=== PATIENT | female | born 1985 | race Caucasian/White ===

== ENCOUNTER 2020-08-24 07:32 | Outpatient (CLI) | payer OTHER ==
[2020-08-24 14:45] LABS: ALBUMIN 4.3 g/dL (3.2-5.5); ALBUMIN/GLOBULIN RATIO 1.4 (1.0-2.2); ALKALINE PHOSPHATASE 48 IU/L (42-121); ALT ALANINE AMINOTRANSFERASE 17 IU/L (10-60); AST ASPARTATE AMINOTRANSFERASE 21 IU/L (10-42); BILIRUBIN,TOTAL 0.9 mg/dL (0.2-1.0); BUN - BLOOD UREA NITROGEN 10 mg/dL (6-20); CARBON DIOXIDE - CO2 28 mmol/L (21-32); CHLORIDE 105 mmol/L (101-111); CHOL/HDL RATIO 2.5 (<4.4); CHOLESTEROL 135 mg/dL; CREATININE 0.7 mg/dL (0.4-1.0); GFR - MDRD 97 (>89); GLUCOSE 100 mg/dL (70-100); HDL CHOLESTEROL 53 mg/dL; LDL CHOLESTEROL,CALCULATED 71 mg/dL; LDL/HDL RATIO 1.3 (<4.4); POTASSIUM 3.9 mmol/L (3.5-5.0); SODIUM 142 mmol/L (135-145); TOTAL PROTEIN 7.4 g/dL (6.7-8.2); TRIGLYCERIDES 54 mg/dL; VLDL CHOLESTEROL 11 mg/dL
[2020-08-24 14:47] LABS: BASOPHILS # (AUTO) 0.1 10^3/uL (0.0-0.1); BASOPHILS % (AUTO) 1.3 %; EOSINOPHILS # (AUTO) 0.2 10^3/uL (0.0-0.7); HCT - HEMATOCRIT 42.1 % (37.0-47.0); HGB - HEMOGLOBIN 13.4 g/dL (12.0-16.0); LYMPHOCYTES # (AUTO) 1.8 10^3/uL (1.5-3.5); LYMPHOCYTES % (AUTO) 30.2 %; MEAN CORPUSCULAR HEMOGLOBIN 30.7 pg (27.0-31.0); MEAN CORPUSCULAR HGB CONC 31.8 g/dL (32.0-36.0); MEAN CORPUSCULAR VOLUME 96.6 fL (81.0-99.0); MEAN PLATELET VOLUME 11.3 fL (7.9-10.8); MONOCYTES # (AUTO) 0.5 10^3/uL (0.0-1.0); MONOCYTES % (AUTO) 7.6 %; NEUTROPHILS # (AUTO) 3.5 10^3/uL (1.5-6.6); NEUTROPHILS % (AUTO) 57.7 %; PLT - PLATELET COUNT 273 10^3/uL (130-450); RED BLOOD COUNT 4.36 10^6/uL (4.20-5.40); RED CELL DISTRIBUTION WIDTH 12.4 % (12.0-15.0); WHITE BLOOD COUNT 6.1 x10^3/uL (4.8-10.8)
[2020-08-24 14:56] LABS: THYROID STIMULATING HORMONE 2.65 uIU/mL (0.34-5.60)
== END 2020-08-24 07:33 | disposition home or self-care (01) ==
LOC: LAB.S 07:32
PROVIDERS: ATTEND Registered Nurse
DX: U07.1 COVID-19 (principal)
CPT/HCPCS: 36415; 80053; 80061; 83721; 84443; 85025

== ENCOUNTER 2022-03-11 13:59 | Outpatient (CLI) | payer MEDICAID ==
[2022-03-11 14:44] LABS: ESTIMATED AVERAGE GLUCOSE 97 mg/dL (70-100)
[2022-03-11 14:53] LABS: THYROID STIMULATING HORMONE 2.57 uIU/mL (0.34-5.60)
[2022-03-11 14:57] LABS: FREE T4 (FREE THYROXINE) 0.92 ng/dL (0.58-1.64)
[2022-03-11 15:21] LABS: FOLLICLE STIMULATING HORMONE 7.51 mIU/mL
[2022-03-11 15:22] LABS: LUTEINIZING HORMONE 5.58 mIU/mL
[2022-03-12 07:10] LABS: ESTRADIOL 16.9 pg/mL (.); SEX HORM BINDING GLOB SERUM 42.2 nmol/L (24.6-122.0)
== END 2022-03-11 14:00 | disposition home or self-care (01) ==
LOC: LAB 13:59
PROVIDERS: ATTEND Nurse Practitioner
DX: N92.6 Irregular menstruation, unspecified (principal)
CPT/HCPCS: 36415; 82627; 82670; 83001; 83002; 83036; 84270; 84403; 84439; 84443

== ENCOUNTER 2022-03-24 08:21 | Outpatient (CLI) | payer MEDICAID ==
[2022-03-24 08:55] LABS: BASOPHILS # (AUTO) 0.1 10^3/uL (0.0-0.1); EOSINOPHILS # (AUTO) 0.4 10^3/uL (0.0-0.7); EOSINOPHILS % (AUTO) 5.1 %; HCT - HEMATOCRIT 42.6 % (37.0-47.0); LYMPHOCYTES # (AUTO) 1.9 10^3/uL (1.5-3.5); LYMPHOCYTES % (AUTO) 24.8 %; MEAN CORPUSCULAR HGB CONC 32.9 g/dL (32.0-36.0); MEAN CORPUSCULAR VOLUME 91.4 fL (81.0-99.0); MEAN PLATELET VOLUME 10.3 fL (7.9-10.8); MONOCYTES # (AUTO) 0.6 10^3/uL (0.0-1.0); MONOCYTES % (AUTO) 7.3 %; NEUTROPHILS # (AUTO) 4.7 10^3/uL (1.5-6.6); NEUTROPHILS % (AUTO) 61.7 %; PLT - PLATELET COUNT 290 10^3/uL (130-450); RED BLOOD COUNT 4.66 10^6/uL (4.20-5.40); RED CELL DISTRIBUTION WIDTH 12.5 % (12.0-15.0); WHITE BLOOD COUNT 7.7 x10^3/uL (4.8-10.8)
[2022-03-24 09:12] LABS: HCG UR QUAL NEGATIVE
[2022-03-24 09:21] LABS: ALBUMIN 3.9 g/dL (3.2-5.5); ALBUMIN/GLOBULIN RATIO 1.3 (1.0-2.2); BILIRUBIN,TOTAL 0.4 mg/dL (0.2-1.0); CALCIUM 8.9 mg/dL (8.5-10.3); CREATININE 0.7 mg/dL (0.4-1.0); POTASSIUM 4.1 mmol/L (3.5-5.0); TOTAL PROTEIN 6.8 g/dL (6.7-8.2)
[2022-03-24 09:34] LABS: THYROID STIMULATING HORMONE 2.26 uIU/mL (0.34-5.60)
== END 2022-03-24 08:22 | disposition home or self-care (01) ==
LOC: LAB 08:21
DX: F41.1 Generalized anxiety disorder (principal)
CPT/HCPCS: 36415; 80053; 81025; 81599; 82306; 82607; 84443; 85025

== ENCOUNTER 2022-06-21 12:48 | Outpatient (CLI) | payer MEDICAID ==
--- NOTE | 2022-06-21 16:33 | Ultrasound Report ---
PROCEDURE: Pelvic w/Transvaginal INDICATIONS: IRREGULAR MENSTRUATION TECHNIQUE: Real-time scanning was performed of the pelvic organs, with image documentation. Additional endovagi nal scanning was necessary due to incomplete visualization of the adnexal and endometrial structures by transabdominal scanning. COMPARISON: None. FINDINGS: Normal size and appearance of the uterus. The uterine body measures 2.5 x 4.6 x 8.4 cm. Endometrium m easures 12 mm in double-layer thickness. Right ovary normal in size measuring 1.7 x 1.8 x 2.7 cm (4.3 mL volume). No ovarian or adnexal mass. Left ovary measures 2.5 x 2.6 x 3.8 cm (13.2 mm volume). Simple cyst in the left ovary measures 1.2 c m. No solid ovarian or adnexal mass. IMPRESSION: Normal study. Reviewed by: Deni Bartlett MD on 06/21/2022 4:32 PM PST Approved by: Deni Bartlett MD on 06/21/2022 4:32 PM PST Station ID: [id number]
== END 2022-06-21 12:49 | disposition home or self-care (01) ==
LOC: DI 12:48
PROVIDERS: ATTEND Nurse Practitioner
DX: N92.6 Irregular menstruation, unspecified (principal)